=== PATIENT | female | born 1945 | race Two or more races ===

== ENCOUNTER 2020-02-22 06:12 | Day surgery (SDC) | payer OTHER ==
[2020-02-22] MEDS ORDERED: ULTRACET PO (11:02)
[2020-02-22] MEDS ORDERED: MACROBID 100 M100 MG PO (11:02)
== END 2020-02-22 12:45 | disposition home or self-care (01) ==
LOC: CIR.AMB 06:12
PROVIDERS: ATTEND Obstetrics & Gynecology Gynecology
DX: N39.3 Stress incontinence (female) (male) (principal); Z20.828 Contact with and (suspected) exposure to other viral communicable diseases
CPT/HCPCS: 57288; C1771